=== PATIENT | female | born 2000 | race Caucasian/White ===

== ENCOUNTER 2019-06-03 09:23 | Inpatient (IN) | payer OTHER ==
[~2019-06-03] VITALS: Ht 152.4 cm; Wt 44.7 kg
[2019-06-03 11:30] LABS: BASOPHILS % (AUTO) 0.5 % (0.0-2.0); EOSINOPHILS % (AUTO) 0.3 % (1.0-6.0); HEMATOCRIT 39.5 % (36-46); HEMOGLOBIN 13.1 g/dL (12.0-16.0); LYMPHOCYTES # (AUTO) 1.4 K/uL (1.0-4.8); LYMPHOCYTES % (AUTO) 15.4 % (22.0-44.0); MEAN CORPUSCULAR HEMOGLOBIN 28.7 pg (26.0-34.0); MEAN CORPUSCULAR HGB CONC 33.2 G/dL (31.0-37.0); MEAN CORPUSCULAR VOLUME 86 fL (80-100); MONOCYTES # (AUTO) 0.5 K/uL (0.1-1.0); MONOCYTES % (AUTO) 5.8 % (2.0-9.0); PLATELET COUNT (AUTO) 520 K/uL (150-450); RED BLOOD CELL COUNT(AUTO) 4.58 MIL/uL (4.00-5.20)
[2019-06-03 11:43] LABS: ANION GAP 13 mmol/L (8-16); CALCIUM, TOTAL 9.1 mg/dL (8.8-10.5); CARBON DIOXIDE 24 mmol/L (22-29); CHLORIDE 100 mmol/L (98-107); CREATININE 0.81 mg/dL (0.60-1.30); GLOMERULAR FILTR. RATE CALC > 60 mL/min (>60); GLUCOSE,RANDOM 80 mg/dL (70-110); POTASSIUM 4.1 mmol/L (3.5-5.1); SODIUM SERUM 137 mmol/L (136-145); UREA NITROGEN, BLOOD 23 mg/dL (7-18)
[2019-06-03] MEDS ORDERED: TUBERCULIN, PURIFIED PROTEIN DERIVATIVE 5 TU/0.1 ML SYRINGE ID ONE (11:45)
[2019-06-03] MEDS ORDERED: LORazepam 2 MG TABLET PO PRN (11:45)
[2019-06-03] MEDS ORDERED: LOPERAMIDE HCL 2 MG CAPSULE PO PRN (11:45)
[2019-06-03] MEDS ORDERED: QUEtiapine FUMARATE 100 MG TABLET PO PRN (11:45)
[2019-06-03] MEDS ORDERED: MAG HYDROX/AL HYDROX/SIMETH ES 30 ML SUSPENSION UDCUP PO PRN (11:45)
[2019-06-03] MEDS ORDERED: ZOLPIDEM TARTRATE 10 MG TABLET PO PRN (11:45)
[2019-06-03] MEDS ORDERED: HydrOXYzine PAMOATE 50 MG CAPSULE PO PRN (11:45)
[2019-06-03] MEDS ORDERED: PROMETHAZINE HCL 25 MG TABLET PO PRN (11:45)
[2019-06-03] MEDS ORDERED: MAGNESIUM HYDROXIDE SUSPENSION 30 ML UDCUP PO PRN (11:45)
[2019-06-03] MEDS ORDERED: GuaiFENesin/D-METHORPHAN [SUGAR-FREE] 200-20MG/10 ML SYRUP UDCUP PO PRN (11:45)
[2019-06-03] MEDS ORDERED: ACETAMINOPHEN 325 MG TABLET PO PRN (11:45)
[2019-06-03 11:49] LABS: ALANINE AMINOTRANSFERASE 22 U/L (12-78); ALBUMIN 4.3 g/dL (3.4-5.0); ALKALINE PHOSPHATASE 45 U/L (46-116); ASPARTATE AMINOTRANSFERASE 17 U/L (15-37); BILIRUBIN,TOTAL 0.7 mg/dL (0.1-1.0); TOTAL PROTEIN, SERUM 7.6 g/dL (6.4-8.2)
[2019-06-03 11:59] LABS: AMPHET/METH SCREEN,URINE NEGATIVE (NEGATIVE); BARBITURATE SCREEN, URINE NEGATIVE (NEGATIVE); BENZODIAZEPINES SCREEN,URINE NEGATIVE (NEGATIVE); CANNABINOID SCREEN,URINE POSITIVE (NEGATIVE); COCAINE SCREEN,URINE NEGATIVE (NEGATIVE); METHADONE SCREEN, URINE NEGATIVE (NEGATIVE); OPIATE SCREEN,URINE NEGATIVE (NEGATIVE)
[2019-06-03 12:00] LABS: PHENCYCLIDINE SCREEN,URINE NEGATIVE (NEGATIVE)
[2019-06-03 12:51] LABS: HCG,QUANTITATIVE < 1 mIU/mL (0-6)
[2019-06-03 15:11] VITALS: BP 119/72
[2019-06-03 16:14] VITALS: BP 119/72
[2019-06-03] MEDS: THIAMINE HCL 100 MG TABLET PO SCH (17:14)
[2019-06-03] MEDS: PRAZOSIN HCL 1 MG CAPSULE PO SCH (21:00)
[2019-06-04 06:15] VITALS: BP 112/65
[2019-06-04 08:08] LABS: BASOPHILS % (AUTO) 0.6 % (0.0-2.0); EOSINOPHILS % (AUTO) 3.8 % (1.0-6.0); HEMATOCRIT 40.5 % (36-46); HEMOGLOBIN 13.8 g/dL (12.0-16.0); LYMPHOCYTES # (AUTO) 2.6 K/uL (1.0-4.8); LYMPHOCYTES % (AUTO) 31.1 % (22.0-44.0); MEAN CORPUSCULAR HEMOGLOBIN 29.5 pg (26.0-34.0); MEAN CORPUSCULAR HGB CONC 34.1 G/dL (31.0-37.0); MEAN CORPUSCULAR VOLUME 87 fL (80-100); MONOCYTES # (AUTO) 0.7 K/uL (0.1-1.0); MONOCYTES % (AUTO) 8.4 % (2.0-9.0); NEUTROPHILS # (AUTO) 4.8 K/uL (1.8-7.7); NEUTROPHILS % (AUTO) 56.1 % (40.0-70.0); PLATELET COUNT (AUTO) 542 K/uL (150-450); RED BLOOD CELL COUNT(AUTO) 4.67 MIL/uL (4.00-5.20); RED CELL DISTRIBUTION WIDTH 13.6 % (11.5-14.5)
[2019-06-04 08:31] LABS: HEMOGLOBIN A1C 5.2 % (4.5-6.2)
[2019-06-04] MEDS: MULTIVITAMINS WITH MINERALS, THERAPEUTIC TABLET PO SCH (08:34)
[2019-06-04] MEDS: THIAMINE HCL 100 MG TABLET PO SCH ×2 (08:34→16:36)
[2019-06-04] MEDS: FOLIC ACID 1 MG TABLET PO SCH (08:34)
[2019-06-04 08:35] LABS: CHOL/HDL RATIO 2.3 (3.9-5.7); FREE T4 (FREE THYROXINE) 1.19 ng/dL (0.76-1.46); THYROID STIMULATING HORMONE 5.62 uIU/mL (0.36-3.74)
[2019-06-04 08:41] VITALS: BP 107/70
[2019-06-04] MEDS ORDERED: FLUoxetine HCL 20 MG CAPSULE PO SCH (09:00)
[2019-06-04] MEDS ORDERED: BISMUTH SUBSALICYLATE 524 MG/30 ML SUSPENSION UDCUP PO PRN (15:30)
[2019-06-04 16:05] VITALS: BP 113/78
[2019-06-04] MEDS: PRAZOSIN HCL 1 MG CAPSULE PO SCH (20:33)
[2019-06-05 00:16] VITALS: BP 97/64
[2019-06-05 08:03] VITALS: BP 107/62
[2019-06-05] MEDS: FOLIC ACID 1 MG TABLET PO SCH (08:52)
[2019-06-05] MEDS: THIAMINE HCL 100 MG TABLET PO SCH ×2 (08:52→16:27)
[2019-06-05] MEDS: MULTIVITAMINS WITH MINERALS, THERAPEUTIC TABLET PO SCH (08:52)
[2019-06-05] MEDS: FLUoxetine HCL 10 MG CAPSULE PO SCH (08:53)
[2019-06-05 16:06] VITALS: BP 106/66
[2019-06-05] MEDS ORDERED: PROZ10 PO (16:53)
[2019-06-05] MEDS ORDERED: PRAZ1 PO (16:53)
[2019-06-05] MEDS: PRAZOSIN HCL 1 MG CAPSULE PO SCH (20:49)
[2019-06-06 00:11] VITALS: BP 101/60
[2019-06-06 08:22] VITALS: BP 111/71
[2019-06-06] MEDS: THIAMINE HCL 100 MG TABLET PO SCH (08:41)
[2019-06-06] MEDS: MULTIVITAMINS WITH MINERALS, THERAPEUTIC TABLET PO SCH (08:41)
[2019-06-06] MEDS: FOLIC ACID 1 MG TABLET PO SCH (08:41)
[2019-06-06] MEDS: FLUoxetine HCL 10 MG CAPSULE PO SCH (08:42)
[2019-06-06] MEDS ORDERED: PRAZ1 PO (09:29)
[2019-06-06] MEDS ORDERED: FLUO-191 PO (09:29)
[2019-06-06] MEDS ORDERED: NALT50TA PO (11:20)
[2019-06-07] MEDS ORDERED: NALTREXONE HCL 50 MG TABLET PO SCH (09:00)
== END 2019-06-06 11:37 | disposition home or self-care (01) | DRG 885 ==
LOC: EMS 09:25 → B2X 13:02
PROVIDERS: ADMIT Psychiatry & Neurology Psychiatry; ATTEND Psychiatry & Neurology Psychiatry
DX: F33.3 Major depressive disorder, recurrent, severe with psychotic symptoms (principal); R45.851 Suicidal ideations; F12.90 Cannabis use, unspecified, uncomplicated; E03.9 Hypothyroidism, unspecified; F41.0 Panic disorder [episodic paroxysmal anxiety]; F43.10 Post-traumatic stress disorder, unspecified; G47.00 Insomnia, unspecified; Z65.3 Problems related to other legal circumstances; Z81.8 Family history of other mental and behavioral disorders
CPT/HCPCS: 83036; 84439; 84443; 86592; 93005; G0480